=== PATIENT | female | born 1980 | race Caucasian/White ===

== ENCOUNTER 2017-01-27 13:47 | Observation (INO) | payer MEDICAID, OTHER ==
[2017-01-27] VITALS (11 sets, daily range): BP systolic 115–145; BP diastolic 43–102; PULSE 96–135; RESP 16–20; TEMP 98.1–99.1; O2SAT 93–99
[~2017-01-27] VITALS: Ht 162.6 cm; Wt 89.9 kg
[2017-01-27] MEDS ORDERED: SODIUM CHLOR 0.9% 1000 ML INJ 1,000 ML IV ONE ×2 (14:30→15:30)
[2017-01-27] MEDS ORDERED: SODIUM CHLORIDE 0.9% FLUSH 10 ML FLUSH IVF PRN (14:30)
[2017-01-27] MEDS ORDERED: ASPIRIN 81 MG CHEW TAB PO ONE (14:30)
--- NOTE | 2017-01-27 14:42 | RADHPO ---
EXAM DATE/TIME: 01/27/2017 14:31 [facility] COMPARISON: No previous studies available for comparison. INDICATIONS : Patient states chest tightness for 2 days. MEDICAL HISTORY : Smoker SURGICAL HISTORY : None. ENCOUNTER: Initial ACUITY: 2 days PAIN SCORE: 2/10 LOCATION: Bilateral chest FINDINGS: A single view of the chest demonstrates the lungs to be symmetrically aerated without evidence of mas s, infiltrate or effusion. The cardiomediastinal contours are unremarkable. Osseous structures are intact. CONCLUSION: Normal examination. Samuel Samaniego Jr., MD on January 27, 2017 at 14:41 Board Certified Radiologist. This report was verified electronically.
[2017-01-27 14:50] LABS: AUTOMATED NEUTROPHIL # 7.9 TH/MM3 (1.8-7.7); BASOPHIL # 0.2 TH/MM3 (0-0.2); BASOPHIL % 2.3 % (0.0-2.0); EOSINOPHIL # 0.1 TH/MM3 (0-0.4); EOSINOPHIL % 1.2 % (0.0-4.0); HEMATOCRIT 40.6 % (35.0-46.0); HEMO FLAGS DIFF FINAL; LYMPH % 19.6 % (9.0-44.0); LYMPHOCYTE # 2.1 TH/MM3 (1.0-4.8); MEAN CELL VOLUME 83.3 FL (80.0-100.0); MEAN CORPUSCULAR HEMOGLOBIN 27.9 PG (27.0-34.0); MEAN CORPUSCULAR HGB CONC 33.5 % (32.0-36.0); MONO % 5.9 % (0.0-8.0); PLATELET COUNT 356 TH/MM3 (150-450); RED BLOOD COUNT 4.88 MIL/MM3 (4.00-5.30); RED CELL DISTRIBUTION WIDTH 11.7 % (11.6-17.2); WHITE BLOOD COUNT 10.9 TH/MM3 (4.0-11.0)
[2017-01-27 14:57] LABS: CHLORIDE 103 MEQ/L (98-107); POTASSIUM 3.9 MEQ/L (3.5-5.1); SODIUM (NA) 139 MEQ/L (136-145)
[2017-01-27 15:01] LABS: ANION GAP 11 MEQ/L (5-15); BICARBONATE 24.6 MEQ/L (21.0-32.0)
[2017-01-27 15:03] LABS: APTT (PATIENT) 26.5 SEC (24.3-30.1); PROTHROMBIN TIME - PATIENT 10.5 SEC (9.8-11.6)
--- NOTE | 2017-01-27 15:10 | PD ---
HPI Chief Complaint: Chest Pain Time Seen by Provider: 14:19 Travel History International Travel<30 days: No Contact w/Intl Traveler<30days: No Traveled to known affect area: No History of Present Illness HPI Patient is a 36-year-old female who presents to emergency room with complaints of chest pain. Patient reports that for over 3 years, has been having increased chest pain and throat pain. Patient reports that sometimes she has trouble swallowing followed by a pain to her chest. Patient reports that symptoms were intermittent for the past 3 years, reports that she has noticed that the symptoms having more symptoms over the past few weeks. Reports that she had some chest pain last night which she describes as a sharp stabbing sensation to her chest, reports that the pain resolved by the time she woke up this morning. Patient reports that she was concerned as she is having some throat pain and trouble swallowing today. Patient this time denies any chest pain or shortness of breath. Reports that she is having some palpitations. Patient is currently not taking any control pills at this time. Denies any recent travels. Patient concerned as she does have a strong family history of "heart conditions." Reports that her mother passed from CHF and her grandfather past of an [place] at 48 years old. Reports that she has not seen a physician for a very long time so she does not think she has any medical problems. PFSH Past Medical History Hx Anticoagulant Therapy: No Diabetes: No Diminished Hearing: No ?: Unknown LMP: 2 WEEKS Social History Alcohol Use: Yes (RARELY) Tobacco Use: Yes (2 PACKS/WEEK) Substance Use: No Allergies-Medications (Allergen,Severity, Reaction): Coded Allergies: Codeine (Verified Allergy, Severe, 01/27/17) Lortab (Verified Adverse Reaction, Intermediate, nausea/CRAMPS, 01/27/17) Reported Meds & Prescriptions Reported Meds & Active Scripts Active No Active Prescriptions or Reported Medications Review of Systems General / Constitutional: No: Fever Eyes: No: Visual changes HENT: Positive: Sore Throat, No: Headaches Cardiovascular: Positive: Chest Pain or Discomfort, Palpitations, Tachycardia, No: Irregular Rhythm Respiratory: No: Shortness of Breath Gastrointestinal: No: Abdominal Pain Genitourinary: No: Dysuria Musculoskeletal: No: Pain Skin: No Rash Neurologic: No: Weakness Psychiatric: No: Depression Endocrine: No: Polydipsia Hematologic/Lymphatic: No: Easy Bruising Physical Exam Narrative GENERAL: NAD, Nontoxic SKIN: Warm and dry. HEAD: Atraumatic. Normocephalic. EYES: Pupils equal and round. No injection or drainage. ENT: No nasal bleeding or discharge. Mucous membranes pink and moist. NECK: Trachea midline. No JVD. CARDIOVASCULAR: Regular rate and rhythm. No murmur appreciated. RESPIRATORY: No accessory muscle use. Clear to auscultation. Breath sounds equal bilaterally. GASTROINTESTINAL: Abdomen soft, non-tender, nondistended. Hepatic and splenic margins not palpable. MUSCULOSKELETAL: No obvious deformities. No clubbing. No cyanosis. No edema. NEUROLOGICAL: Awake and alert. No obvious cranial nerve deficits. Motor grossly within normal limits. Normal speech. PSYCHIATRIC: Appropriate mood and affect; insight and judgment normal. Data Data Last Documented VS Vital Signs Date Time Temp Pulse Resp B/P Pulse Ox O2 Delivery O2 Flow Rate FiO2 01/27/17 17:37 96 20 139/93 95 01/27/17 13:56 99.1 Orders B-Type Natriuretic Peptide (01/27/17 14:29) Ckmb (Isoenzyme) Profile (01/27/17 14:29) Complete Blood Count With Diff (01/27/17 14:29) Comprehensive Metabolic Panel (01/27/17 14:29) D-Dimer (01/27/17 14:29) Magnesium (Mg) (01/27/17 14:29) Prothrombin Time / Inr (Pt) (01/27/17 14:29) Act Partial Throm Time (Ptt) (01/27/17 14:29) Troponin I (01/27/17 14:29) Lipase (01/27/17 14:29) Chest, Single Ap (01/27/17 14:29) Ecg Monitoring (01/27/17 14:29) Iv Access Insert/Monitor (01/27/17 14:29) Oximetry (01/27/17 14:29) Aspirin Chew (Aspirin Chew) (01/27/17 14:30) Sodium Chloride 0.9% Flush (Ns Flush) (01/27/17 14:30) Sodium Chlor 0.9% 1000 Ml Inj (Ns 1000 M (01/27/17 14:30) Electrocardiogram (01/27/17 14:00) Group A Rapid Strep Screen (01/27/17 15:21) Ct Pulmonary Angiogram (01/27/17 15:22) Sodium Chlor 0.9% 1000 Ml Inj (Ns 1000 M (01/27/17 15:30) Ct Soft Tiss Neck W/O Iv Cont (01/27/17 ) Thyroid Stimulating Hormone (01/27/17 14:42) Strep Culture (Group A) (01/27/17 15:20) Ed Urine Pregnancytest Poc (01/27/17 16:14) Admit Order (Ed Use Only) (01/27/17 18:18) Labs Laboratory Tests Test 01/27/17 14:42 White Blood Count 10.9 TH/MM3 Red Blood Count 4.88 MIL/MM3 Hemoglobin 13.6 GM/DL Hematocrit 40.6 % Mean Corpuscular Volume 83.3 FL Mean Corpuscular Hemoglobin 27.9 PG Mean Corpuscular Hemoglobin 33.5 % Concent Red Cell Distribution Width 11.7 % Platelet Count 356 TH/MM3 Mean Platelet Volume 8.2 FL Neutrophils (%) (Auto) 71.0 % Lymphocytes (%) (Auto) 19.6 % Monocytes (%) (Auto) 5.9 % Eosinophils (%) (Auto) 1.2 % Basophils (%) (Auto) 2.3 % Neutrophils # (Auto) 7.9 TH/MM3 Lymphocytes # (Auto) 2.1 TH/MM3 Monocytes # (Auto) 0.6 TH/MM3 Eosinophils # (Auto) 0.1 TH/MM3 Basophils # (Auto) 0.2 TH/MM3 CBC Comment DIFF FINAL Differential Comment Prothrombin Time 10.5 SEC Prothromb Time International 1.0 RATIO Ratio Activated Partial 26.5 SEC Thromboplast Time D-Dimer Quantitative (PE/DVT) 0.50 MG/L FEU Sodium Level 139 MEQ/L Potassium Level 3.9 MEQ/L Chloride Level 103 MEQ/L Carbon Dioxide Level 24.6 MEQ/L Anion Gap 11 MEQ/L Blood Urea Nitrogen 17 MG/DL Creatinine 1.30 MG/DL Estimat Glomerular Filtration 46 ML/MIN Rate Random Glucose 424 MG/DL Calcium Level 8.7 MG/DL Magnesium Level 1.8 MG/DL Total Bilirubin 0.3 MG/DL Aspartate Amino Transf 10 U/L (AST/SGOT) Alanine Aminotransferase 32 U/L (ALT/SGPT) Alkaline Phosphatase 139 U/L Total Creatine Kinase 48 U/L Troponin I LESS THAN 0.02 NG/ML B-Type Natriuretic Peptide 11 PG/ML Total Protein 7.2 GM/DL Albumin 2.9 GM/DL Lipase 215 U/L Thyroid Stimulating Hormone 1.610 uIU/ML 3rd Gen [facility] Medical Decision Making Medical Screen Exam Complete: Yes Emergency Medical Condition: Yes Interpretation(s) EKG at 1400: Sinus tach at 132bpm, qt/qtc: 286/412, no acute st or t wave changes Vital Signs Date Time Temp Pulse Resp B/P Pulse Ox O2 Delivery O2 Flow Rate FiO2 01/27/17 15:07 127 20 133/95 94 01/27/17 15:06 94 01/27/17 13:56 99.1 135 16 129/99 99 Differential Diagnosis Arrhythmia, ACS, strep pharyngitis, PE, electrolyte abnormality Narrative Course Patient is a 36-year-old female who presents to emergency room with multiple complaints. Reports that for over 3 years, she has had sore throat as well as chest pain. Patient reports that she has a sensation that something is stuck in her throat, reports that when she has these symptoms, they last for about a day and resolve on its own. Reports that she is able to eat and drink like her normal self, she has not lost any weight due to this. Reports that she "i feel like something is stuck in my throat." CT of the neck ordered. Patient also with chest pain. EKG with sinus tachycardia upon arrival to the emergency room. Labs as well as cardiac enzymes ordered. D-dimer 0.50 which is top normal. Patient continues to be tachycardic, CTA of the chest was ordered to evaluate for possible PE. Blood sugar is 424. Patient is hyperglycemic with no history of diabetes in the past, patient with most likely with new onset diabetes Diagnosis Primary Impression: Chest pain Scripts No Active Prescriptions or Reported Meds Noelle Sequeira DO Jan 27, 2017 15:10
[2017-01-27 15:20] LABS: ALKALINE PHOSPHATASE 139 U/L (45-117); ALT (GPT) 32 U/L (10-53); AST (GOT) 10 U/L (15-37); BLOOD UREA NITROGEN 17 MG/DL (7-18); CREATINE KINASE 48 U/L (26-192); GLOMERULAR FILTRATION RATE 46 ML/MIN (>89); MAGNESIUM 1.8 MG/DL (1.5-2.5); TOTAL BILIRUBIN ADULT 0.3 MG/DL (0.2-1.0)
[2017-01-27] MEDS ORDERED: IOHEXOL 350 MG/ML 10 ML VIAL (for RAD DIAG) IV ONE (17:20)
--- NOTE | 2017-01-27 17:42 | RADHPO ---
EXAM DATE/TIME: 01/27/2017 17:13 [facility] COMPARISON: No previous studies available for comparison. INDICATIONS : Intermittent chest pain for three years. Evaluate for embolism. IV CONTRAST: 75 cc Omnipaque 350 (iohexol) IV RADIATION DOSE: 21.42 CTDIvol (mGy) MEDICAL HISTORY : None SURGICAL HISTORY : None. ENCOUNTER: Initial ACUITY: >1 yr PAIN SCALE: 2/10 LOCATION: Bilateral chest TECHNIQUE: Volumetric scanning of the chest was performed using a pulmonary embolism protocol MIP images were re constructed. Using automated exposure control and adjustment of the mA and/or kV according to patien t size, radiation dose was kept as low as reasonably achievable to obtain optimal diagnostic quality images. FINDINGS: PULMONARY ARTERIES: No filling defects are seen in the pulmonary arteries through the segmental level. LUNGS: Minimal subpleural atelectatic changes in the right base. Lungs are otherwise clear. PLEURAE: There is no pleural thickening or pleural effusion. MEDIASTINUM: There is good visualization of the great vessels of the middle mediastinum. No evidence of mediastin al or hilar adenopathy/mass. MUSCULOSKELETAL: Within normal limits for patient age. MISCELLANEOUS: The visualized upper abdominal organs demonstrate no acute abnormality. CONCLUSION: 1. Minimal atelectatic changes particularly in the subpleural distribution of the right base. 2. Otherwise negative. No acute infiltrate or pulmonary embolus to explain current clinical symptoms. Freddy Orellana MD on January 27, 2017 at 17:38 Board Certified Radiologist. This report was verified electronically.
--- NOTE | 2017-01-27 17:45 | RADHPO ---
EXAM DATE/TIME: 01/27/2017 17:07 [facility] COMPARISON: No previous studies available for comparison. INDICATIONS : Intermittent throat pain for three years. Evaluate for foreign body. RADIATION DOSE: 14.94 CTDIvol (mGy) MEDICAL HISTORY : None SURGICAL HISTORY : None. ENCOUNTER: Initial ACUITY: >1 yr PAIN SCORE: 2/10 LOCATION: Bilateral neck TECHNIQUE: Volumetric scanning of the neck was performed. Using automated exposure control and adjustment of th e mA and/or kV according to patient size, radiation dose was kept as low as reasonably achievable to obtain optimal diagnostic quality images. FINDINGS: NASOPHARYNX: The nasopharyngeal airway has a normal configuration. No mucosal thickening or mass is seen. OROPHARYNX: The intrinsic muscles of the tongue are symmetric. The tonsillar pillars are intact. The prevertebr al soft tissues are not thickened. LARYNX: The supraglottic, glottic, and infraglottic structures are intact. PARAPHARYNGEAL: The parapharyngeal space is intact. SALIVARY GLANDS: The parotid and submandibular glands are intact. LYMPH NODES: No enlarged or necrotic-appearing nodes. THYROID: Homogeneous enhancement without evidence of nodule. BONES: Unremarkable. CONCLUSION: Negative exam. No mass lesion, adenopathy or foreign body. Freddy Orellana MD on January 27, 2017 at 17:41 Board Certified Radiologist. This report was verified electronically.
--- NOTE | 2017-01-27 18:18 | PD ---
Physical Exam Narrative Received sign out from previous team to follow up CTs and likely admit for chest pain and new onset diabetes. 36yo F with no PMH because she does not go to the doctor here with c/o intermittent chest pain. States this episode started this morning and it is pressure like, midsternal and seems to radiate up throat. Denies any sob, nausea, diaphoresis, weakness or numbness. States she has had chest pain before and was told to go for a stress test but never did. Pt has family history that is significant for maternal grandfather of [place] at 48yo. Pt is also a cig smoker and overweight. Although pt's chest pain is atypical, felt that she has not had stress test or further testing. Labs reviewed, no leukocytosis. Glucose 424. No increased anion gap. Creatinine 1.30. Pt given NS IVF x2. Pt has never been diagnosed with diabetes. Troponin negative. BNP 11. TSH normal. CT angio showed no PE. CXR negative. CT neck negative. Negative group A strep. Discussed with Dr. Hudson and accepted for chest pain and new onset diabetes. Discussed with Dr. Hudson and accepted to his service. Data Data Last Documented VS Vital Signs Date Time Temp Pulse Resp B/P Pulse Ox O2 Delivery O2 Flow Rate FiO2 01/27/17 17:37 96 20 139/93 95 01/27/17 13:56 99.1 Orders B-Type Natriuretic Peptide (01/27/17 14:29) Ckmb (Isoenzyme) Profile (01/27/17 14:29) Complete Blood Count With Diff (01/27/17 14:29) Comprehensive Metabolic Panel (01/27/17 14:29) D-Dimer (01/27/17 14:29) Magnesium (Mg) (01/27/17 14:29) Prothrombin Time / Inr (Pt) (01/27/17 14:29) Act Partial Throm Time (Ptt) (01/27/17 14:29) Troponin I (01/27/17 14:29) Lipase (01/27/17 14:29) Chest, Single Ap (01/27/17 14:29) Ecg Monitoring (01/27/17 14:29) Iv Access Insert/Monitor (01/27/17 14:29) Oximetry (01/27/17 14:29) Aspirin Chew (Aspirin Chew) (01/27/17 14:30) Sodium Chloride 0.9% Flush (Ns Flush) (01/27/17 14:30) Sodium Chlor 0.9% 1000 Ml Inj (Ns 1000 M (01/27/17 14:30) Electrocardiogram (01/27/17 14:00) Group A Rapid Strep Screen (01/27/17 15:21) Ct Pulmonary Angiogram (01/27/17 15:22) Sodium Chlor 0.9% 1000 Ml Inj (Ns 1000 M (01/27/17 15:30) Ct Soft Tiss Neck W/O Iv Cont (01/27/17 ) Thyroid Stimulating Hormone (01/27/17 14:42) Strep Culture (Group A) (01/27/17 15:20) Ed Urine Pregnancytest Poc (01/27/17 16:14) Labs Laboratory Tests Test 01/27/17 14:42 White Blood Count 10.9 TH/MM3 Red Blood Count 4.88 MIL/MM3 Hemoglobin 13.6 GM/DL Hematocrit 40.6 % Mean Corpuscular Volume 83.3 FL Mean Corpuscular Hemoglobin 27.9 PG Mean Corpuscular Hemoglobin 33.5 % Concent Red Cell Distribution Width 11.7 % Platelet Count 356 TH/MM3 Mean Platelet Volume 8.2 FL Neutrophils (%) (Auto) 71.0 % Lymphocytes (%) (Auto) 19.6 % Monocytes (%) (Auto) 5.9 % Eosinophils (%) (Auto) 1.2 % Basophils (%) (Auto) 2.3 % Neutrophils # (Auto) 7.9 TH/MM3 Lymphocytes # (Auto) 2.1 TH/MM3 Monocytes # (Auto) 0.6 TH/MM3 Eosinophils # (Auto) 0.1 TH/MM3 Basophils # (Auto) 0.2 TH/MM3 CBC Comment DIFF FINAL Differential Comment Prothrombin Time 10.5 SEC Prothromb Time International 1.0 RATIO Ratio Activated Partial 26.5 SEC Thromboplast Time D-Dimer Quantitative (PE/DVT) 0.50 MG/L FEU Sodium Level 139 MEQ/L Potassium Level 3.9 MEQ/L Chloride Level 103 MEQ/L Carbon Dioxide Level 24.6 MEQ/L Anion Gap 11 MEQ/L Blood Urea Nitrogen 17 MG/DL Creatinine 1.30 MG/DL Estimat Glomerular Filtration 46 ML/MIN Rate Random Glucose 424 MG/DL Calcium Level 8.7 MG/DL Magnesium Level 1.8 MG/DL Total Bilirubin 0.3 MG/DL Aspartate Amino Transf 10 U/L (AST/SGOT) Alanine Aminotransferase 32 U/L (ALT/SGPT) Alkaline Phosphatase 139 U/L Total Creatine Kinase 48 U/L Troponin I LESS THAN 0.02 NG/ML B-Type Natriuretic Peptide 11 PG/ML Total Protein 7.2 GM/DL Albumin 2.9 GM/DL Lipase 215 U/L Thyroid Stimulating Hormone 1.610 uIU/ML 3rd Gen MDM Supervised Visit with ARNOL: No Diagnosis Primary Impression: Chest pain Qualified Code: R07.9 - Chest pain, unspecified type Additional Impression: Diabetes mellitus, new onset Admitting Information Admitting Physician Requests: Observation Scripts No Active Prescriptions or Reported Meds Cherelle Contreras DO Jan 27, 2017 18:18
[2017-01-27] MEDS ORDERED: SODIUM CHLORIDE 0.9% FLUSH 10 ML FLUSH IV FLUSH PRN (18:30)
[2017-01-27] MEDS ORDERED: DEXTROSE 50% IN WATER 50 ML VIAL(D50) IV PUSH PRN (18:30)
[2017-01-27] MEDS ORDERED: ACETAMINOPHEN 325 MG TAB PO PRN (18:30)
[2017-01-27] MEDS ORDERED: NALOXONE HCL 0.4 MG/ML AMP IV PRN (18:30)
[2017-01-27] MEDS ORDERED: GLUCAGON 1 MG/ML VIAL OTHER PRN (18:30)
[2017-01-27] MEDS: INSULIN ASPART SUPPLEMENTAL SCALE SQ SCH (20:23)
[2017-01-27] MEDS: HEPARIN SODIUM - SQ 10,000 UNITS/ML VIAL SQ SCH (20:23)
[2017-01-27] MEDS: SODIUM CHLORIDE 0.9% FLUSH 10 ML FLUSH IV FLUSH SCH (21:00)
[2017-01-27 21:25] LABS: CREATINE KINASE 47 U/L (26-192)
--- NOTE | 2017-01-27 22:20 | EKG ---
Date Performed: 01/27/2017 Time Performed: 19:59:50 PTAGE: 36 years EKG: Sinus rhythm Normal ECG PREVIOUS TRACING : 01/27/2017 14.00 Compared to the previous tracing rate slower DOCTOR: Bennett Banda Interpretating Date/Time 01/27/2017 22:18:21
--- NOTE | 2017-01-27 22:33 | EKG ---
Date Performed: 01/27/2017 Time Performed: 14:00:42 PTAGE: 36 years EKG: Sinus tachycardia Poor R wave progression - probable normal variant Borderline ECG NO PREVIOUS TRACING DOCTOR: Bennett Banda Interpretating Date/Time 01/27/2017 22:31:02
[2017-01-28] VITALS (7 sets, daily range): BP systolic 117–135; BP diastolic 82–101; PULSE 89–106; RESP 18–20; TEMP 97.4–98.7; O2SAT 95–100
[2017-01-28 03:05] LABS: CREATINE KINASE 100 U/L (26-192)
[2017-01-28] MEDS: HEPARIN SODIUM - SQ 10,000 UNITS/ML VIAL SQ SCH ×3 (04:04→21:35)
[2017-01-28] MEDS: INSULIN ASPART SUPPLEMENTAL SCALE SQ SCH ×4 (06:24→21:38)
[2017-01-28 08:54] LABS: BICARBONATE 28.3 MEQ/L (21.0-32.0)
[2017-01-28] MEDS: SODIUM CHLORIDE 0.9% FLUSH 10 ML FLUSH IV FLUSH SCH ×2 (09:00→21:35)
--- NOTE | 2017-01-28 09:40 | HHI.HP ---
[facility] Service [facility] Primary Care Physician No Primary Care Physician Admission Diagnosis Chest pain, new onset diabetes Diagnoses: (1) Chest pain Diagnosis: Principal (2) Diabetes mellitus, new onset Diagnosis: Principal Chief Complaint: Chest pain Travel History International Travel<30 Days: No Contact w/Intl Traveler <30 Da: No Traveled to Known Affected Are: No History of Present Illness 36-year-old female with no chronic medical illnesses who presented to hospital because of a two-year history of chest discomfort. Patient states that she is experiencing intermittent chest discomfort for the last 2 years. She states that the pain starts in the middle part of her chest and radiates up into her throat, she can't describe the pain that well, however she indicates that he usually ends with a burning sensation in the base of her throat. She states the pain lasts for a couple seconds at a time and resolves on its own. Patient does indicate that she gets a sensation that her heart is going to pound out of her chest. Patient denies any nausea, vomiting, diaphoresis, lightheadedness, dizziness, shortness of breath, dyspnea. Patient indicates that she does get heartburn frequently and she has eliminated certain foods out of her diet in order to avoid heartburn. She does not indicate that any certain activity causes the pain get worse or get better. The pain can happen at during rest or during exertion. Patient is concerned because she has significant family history with mother dying in her sleep with history of congestive heart failure, valve replacement. Grandfather also had heart attack at age 46. Review of Systems Constitutional: DENIES: Diaphoretic episodes, Fatigue, Fever, Weight gain, Weight loss, Chills, Dizziness, Change in appetite, Night Sweats Endocrine: DENIES: Abnorml menstrual pattern, Heat/cold intolerance, Polydipsia , Polyuria, Polyphagia Eyes: DENIES: Blurred vision, Diplopia, Eye inflammation, Eye pain, Vision loss , Photosensitivity, Double Vision Ears, nose, mouth, throat: DENIES: Tinnitus, Hearing loss, Vertigo, Nasal discharge, Oral lesions, Throat pain, Hoarseness, Ear Pain, Running Nose, Epistaxis, Sinus Pain, Toothache, Odynophagia Respiratory: DENIES: Apneas, Cough, Snoring, Wheezing, Hemoptysis, Sputum production, Shortness of breath Cardiovascular: COMPLAINS OF: Chest pain, DENIES: Palpitations, Syncope, Dyspnea on Exertion, PND, Lower Extremity Edema, Orthopnea, Claudication Gastrointestinal: DENIES: Abdominal pain, Black stools, Bloody stools, Constipation, Diarrhea, Nausea, Vomiting, Difficulty Swallowing, Anorexia Neurologic: DENIES: Abnormal gait, Headache, Localized weakness, Paresthesias, Seizures, Speech Problems, Tremor, Poor Balance Psychiatric: DENIES: Anxiety, Confusion, Mood changes, Depression Past Family Social History Past Medical History No chronic medical illnesses Past Surgical History 13 years ago Reported Medications No chronic medications Allergies: Coded Allergies: Codeine (Verified Allergy, Severe, 01/27/17) Lortab (Verified Adverse Reaction, Intermediate, nausea/CRAMPS, 01/27/17) Family History Reviewed and significant for heart disease with mother passing away in her sleep. Has history of congestive heart failure, valve replacement. Grandfather with early onset heart disease at age 46 Social History Patient smokes 2 pack a cigarettes a week. She is been smoking since she was a teenager. She denies any alcohol or illicit drugs Physical Exam Vital Signs Vital Signs Date Time Temp Pulse Resp B/P Pulse Ox O2 Delivery O2 Flow Rate FiO2 01/28/17 08:00 98.6 95 20 126/83 100 01/28/17 04:00 97.4 91 20 117/84 98 01/28/17 00:00 98.7 95 18 125/90 98 01/27/17 22:00 99 01/27/17 21:55 98.1 100 18 145/102 98 01/27/17 21:38 18 96 01/27/17 19:49 103 18 144/43 96 Room Air 01/27/17 19:49 103 18 96 Room Air 01/27/17 19:06 100 18 142/92 98 Room Air 01/27/17 18:34 104 20 140/92 93 01/27/17 17:37 96 20 139/93 95 01/27/17 16:50 103 20 121/73 95 01/27/17 15:54 102 20 115/54 94 01/27/17 15:07 127 20 133/95 94 01/27/17 15:06 94 01/27/17 13:56 99.1 135 16 129/99 99 Physical Exam GENERAL: Well-developed, well-nourished, in no acute distress. alert and orientated HEENT: Head is normocephalic without any lesions or masses noted. Facial features are symmetric. Eyes: Pupils equal round reactive to light. Extraocular muscles are intact. Conjunctivae were clear. Oropharyngeal: Pharynx without any erythema edema. Tongue is midline without deviation. Buccal mucosa is moist without any masses or lesions NECK: Supple without any masses. Trachea midline no deviation. No JVD, no bruits are appreciated CARDIAC: Regular rhythm, regular rate. S1/S2 are heard. No murmurs gallops or rubs. LUNGS: Clear to auscultation bilaterally. No wheeze, rhonchi or rales. No use of accessory muscles on inspiration or expiration. ABDOMEN: Soft, nontender. Nondistended. Bowel sounds heard in all 4 quadrants. No organomegaly or masses. Negative rebound, negative guarding EXTREMITIES: No edema, pulses are equal bilaterally. No cyanosis or clubbing NEUROLOGY: Mood and affect appear appropriate. Cranial nerves II through XII grossly intact. Muscle strength 5/5 in upper and lower extremities bilaterally. Deep tendon reflexes are 2+ in upper and lower extremities bilaterally. Laboratory Laboratory Tests Test 01/27/17 01/27/17 01/28/17 01/28/17 14:42 20:35 02:10 08:25 White Blood Count 10.9 Red Blood Count 4.88 Hemoglobin 13.6 Hematocrit 40.6 Mean Corpuscular Volume 83.3 Mean Corpuscular Hemoglobin 27.9 Mean Corpuscular Hemoglobin 33.5 Concent Red Cell Distribution Width 11.7 Platelet Count 356 Mean Platelet Volume 8.2 Neutrophils (%) (Auto) 71.0 Lymphocytes (%) (Auto) 19.6 Monocytes (%) (Auto) 5.9 Eosinophils (%) (Auto) 1.2 Basophils (%) (Auto) 2.3 Neutrophils # (Auto) 7.9 Lymphocytes # (Auto) 2.1 Monocytes # (Auto) 0.6 Eosinophils # (Auto) 0.1 Basophils # (Auto) 0.2 CBC Comment DIFF FINAL Differential Comment Prothrombin Time 10.5 Prothromb Time International 1.0 Ratio Activated Partial 26.5 Thromboplast Time D-Dimer Quantitative (PE/DVT) 0.50 Sodium Level 139 141 Potassium Level 3.9 4.0 Chloride Level 103 106 Carbon Dioxide Level 24.6 28.3 Anion Gap 11 7 Blood Urea Nitrogen 17 Creatinine 1.30 Estimat Glomerular Filtration 46 Rate Random Glucose 424 Calcium Level 8.7 8.2 Magnesium Level 1.8 Total Bilirubin 0.3 Aspartate Amino Transf 10 (AST/SGOT) Alanine Aminotransferase 32 (ALT/SGPT) Alkaline Phosphatase 139 Total Creatine Kinase 48 47 100 Troponin I LESS THAN 0.02 LESS THAN 0.02 LESS THAN 0.02 B-Type Natriuretic Peptide 11 Total Protein 7.2 Albumin 2.9 Lipase 215 Thyroid Stimulating Hormone 1.610 3rd Gen Date/Time Procedure Status Source Growth 01/27/17 15:20 Group A Streptococcus Screen (TEE) - Final Complete Throat 01/27/17 15:20 Group A Streptococcus Screen Received Throat Pending Result Diagram: 01/27/17 1442 01/28/[address] Angiography 01/27/17 1522 Signed Impressions: Service Date/Time: Friday, January 27, 2017 17:13 - CONCLUSION: 1. Minimal atelectatic changes particularly in the subpleural distribution of the right base. 2. Otherwise negative. No acute infiltrate or pulmonary embolus to explain current clinical symptoms. Freddy Orellana MD Chest X-Ray 01/27/17 1429 Signed Impressions: Service Date/Time: Friday, January 27, 2017 14:31 - CONCLUSION: Normal examination. Samuel Samaniego Jr., MD Neck CT 01/27/17 0000 Signed Impressions: Service Date/Time: Friday, January 27, 2017 17:07 - CONCLUSION: Negative exam. No mass lesion, adenopathy or foreign body. Freddy Orellana MD Assessment and Plan Assessment and Plan Chest pain: Atypical Patient with increased risk factors to include diabetes, tobacco use, family history of early-onset heart disease Patient has been ruled out for any acute coronary event with serial cardiac enzymes are negative Serial EKGs were reviewed and did not indicate any changes. We'll pursue nuclear stress test rule out any underlying ischemia Obtain lipid panel New onset diabetes, patient does have family history of diabetes Accu-Cheks sliding scale insulin Consult medical educator, dietitian for counseling Awaiting glycohemoglobin Azotemia, unknown whether chronic or acute Continue IV fluids Continue monitor renal function Chronic tobacco use Patient counseled on cessation DVT prevention Sequential compression devices Written by Shant Nieves, acting as scribe for Dr. Bills on 01/28/17 at 09:40. All or portions of this note were transcribed by scribe Shant Nieves. I, Dr. Shant Bills personally performed the history, physical exam, and medical decision making; and confirmed the accuracy of the information in the transcribed note. Authenticated by Dr. Shant Bills on 01/28/17 at 09:52. Problem Qualifiers (1) Chest pain: Qualified Code: R07.9 - Chest pain, unspecified type Shant Nieves Jan 28, 2017 09:40 Shant Bills MD Jan 28, 2017 09:52
[2017-01-28] MEDS ORDERED: REGADENOSON INJ 0.4 MG/5 ML SYR IV ONE (10:24)
--- NOTE | 2017-01-28 12:01 | RADHPO ---
EXAM DATE/TIME: 01/28/2017 10:45 [facility] COMPARISON: No previous studies available for comparison. INDICATIONS : Substernal chest pain intermittently for one week. Angina. DOSE: 25.4 mCi Tc99m Myoview at stress. 8.5 mCi Tc99m Myoview at rest. 0.4 mg Lexiscan STRESS SYMPTOMS: Dyspnea, headache, lightheaded, arms and legs heavy and chest pain. EJECTION FRACTION: 61% MEDICAL HISTORY : Diabetes mellitus type 2. SURGICAL HISTORY : section. ENCOUNTER: Initial ACUITY: 1 week PAIN SCALE: 6/10 LOCATION: Substernal chest TECHNIQUE: The patient underwent pharmacologic stress with infusion of prescribed dose. Continuous ECG tracing was monitored during stress. Gated SPECT imaging was performed after stress and conventional SPECT i maging was performed at rest. The examination was performed on a SPECT/CT scanner, both attenuation and non-corrected datasets were reviewed. FINDINGS: DISTRIBUTION: The maximum perfused segment at stress is in the inferior wall. PERFUSION STUDY: The pattern of perfusion at stress shows an isolated area of approximately 20% redistribution in the mid to low lateral wall on the short axis views. This is not duplicated on the horizontal long axis v iews, however and therefore, it is artifactual. Relatively fixed diminished perfusion to the apex. GATED STUDY: There is intact wall motion and thickening without hypokinetic or dyskinetic segments. CONCLUSION: 1. No reversibility to suggest ischemia. 2. Diminished apical perfusion on rest and stress images may represent apical thinning or old apical infarct. 3. Intact wall motion throughout with an estimated ejection fraction of 61%. RISK CATEGORY: Low (<1% Annual Mortality Rate) Freddy Orellana MD on January 28, 2017 at 11:55 Board Certified Radiologist. This report was verified electronically.
[2017-01-28 13:35] LABS: HDL CHOLESTEROL 34.1 MG/DL (40.0-60.0)
[2017-01-28 15:47] LABS: HEMOGLOBIN A1a 1.1 %; HEMOGLOBIN Ao 76.4 %; HEMOGLOBIN LA1C 2.9 %; HEMOGLOBIN P3 5.2 %
--- NOTE | 2017-01-28 20:20 | EKG ---
Date Performed: 01/28/2017 Time Performed: 01:38:06 PTAGE: 36 years EKG: Sinus rhythm Normal ECG PREVIOUS TRACING : 01/27/2017 19.59 Compared to prior tracing no significant change DOCTOR: Bennett Banda Interpretating Date/Time 01/28/2017 20:19:15
[2017-01-29] VITALS: BP 129/92; PULSE 90; RESP 20; TEMP 98.3; O2SAT 98
[2017-01-29 04:00] VITALS: BP 114/82; PULSE 92; RESP 20; TEMP 98; O2SAT 93
[2017-01-29] MEDS: HEPARIN SODIUM - SQ 10,000 UNITS/ML VIAL SQ SCH ×2 (05:55→10:07)
[2017-01-29] MEDS: INSULIN ASPART SUPPLEMENTAL SCALE SQ SCH ×3 (05:58→16:00)
[2017-01-29 08:00] VITALS: BP 118/78; PULSE 98; RESP 16; TEMP 96.5; O2SAT 99
[2017-01-29] MEDS ORDERED: glipiZIDE 10 MG TAB PO ONE (09:00)
[2017-01-29] MEDS: SODIUM CHLORIDE 0.9% FLUSH 10 ML FLUSH IV FLUSH SCH (09:00)
[2017-01-29] MEDS ORDERED: metFORMIN HCL 500 MG TAB PO SCH ×2 (09:00)
[2017-01-29] MEDS ORDERED: BLOOD GLUCOSE T1 TES (12:07)
[2017-01-29] MEDS ORDERED: GLIP5TAB8 PO (12:07)
[2017-01-29] MEDS ORDERED: METF500 PO (12:07)
[2017-01-29] MEDS ORDERED: LANCETS1 MI1 (12:07)
--- NOTE | 2017-01-29 12:11 | HHI.DCPOC ---
Discharge Care Plan Diagnosis: (1) Diabetes mellitus, new onset (2) Chest pain Goals to Promote Your Health * To prevent worsening of your condition and complications * To maintain your health at the optimal level Directions to Meet Your Goals Take your medications as prescribed Follow your dietary instruction Follow activity as directed Keep your appointments as scheduled Take your immunizations and boosters as scheduled If your symptoms worsen call your PCP, if no PCP go to Urgent Care Center or Emergency Room Smoking is Dangerous to Your Health. Avoid second hand smoke Call the 24-hour hour crisis hotline for domestic abuse at Shant Nieves Jan 29, 2017 12:11
--- NOTE | 2017-01-29 12:16 | HHI.PR ---
Subjective Remarks Patient seen and examined today with Dr. Gonzales. Patient states that she is doing better. Denies any recurrent chest pain. Patient is undergoing diabetic education at this time. Dr. Gonzales and myself also counseled patient on diabetes, medication use, exercise, diet. Objective Vitals Vital Signs Date Time Temp Pulse Resp B/P Pulse Ox O2 Delivery O2 Flow Rate FiO2 01/29/17 08:00 96.5 98 16 118/78 99 01/29/17 04:00 98.0 92 20 114/82 93 01/29/17 00:00 98.3 90 20 129/92 98 01/28/17 20:04 106 01/28/17 20:00 98.6 102 20 127/101 95 01/28/17 16:00 98.2 99 20 131/82 98 I/O 01/28/17 01/28/17 01/28/17 01/29/17 01/29/17 01/29/17 07:00 15:00 23:00 07:00 15:00 23:00 Intake Total 480 ml 220 ml 60 ml Balance 480 ml 220 ml 60 ml Intake Oral 480 ml 220 ml 60 ml # Voids 2 7 4 1 # Bowel Movements 0 0 Result Diagram: 01/27/17 1442 01/28/17 0825 Objective Remarks GENERAL: Well-developed, well-nourished, in no acute distress. alert and orientated HEENT: Head is normocephalic without any lesions or masses noted. Facial features are symmetric. Eyes: Extraocular muscles are intact. Conjunctivae were clear. NECK: Supple without any masses. Trachea midline no deviation. No JVD, CARDIAC: Regular rhythm, regular rate. S1/S2 are heard. No murmurs gallops or rubs. LUNGS: Clear to auscultation bilaterally. No wheeze, rhonchi or rales. No use of accessory muscles on inspiration or expiration. ABDOMEN: Soft, nontender. Nondistended. Bowel sounds heard in all 4 quadrants. No organomegaly or masses. Negative rebound, negative guarding EXTREMITIES: No edema, pulses are equal bilaterally. No cyanosis or clubbing NEUROLOGY: Mood and affect appear appropriate. Cranial nerves II through XII grossly intact. Moving all extremities, speech is clear Urinary Catheter: No Vascular Central Line Catheter: No A/P Assessment and Plan Chest pain: Atypical Patient with increased risk factors to include diabetes, tobacco use, family history of early-onset heart disease Patient has been ruled out for any acute coronary event with serial cardiac enzymes are negative Serial EKGs were reviewed and did not indicate any changes. Nuclear stress test was performed which did not indicate any acute abnormality or reversible ischemia. Lipid panel performed which does show LDL 114. Recommending lifestyle modifications at this time. Outpatient follow-up with primary medical doctor New onset diabetes, patient does have family history of diabetes Accu-Cheks sliding scale insulin Consulted conservation educator, dietitian for counseling Hemoglobin A1c 11.0 Patient started on metformin 1000 mg twice daily, glipizide 5 mg twice daily Patient was counseled to check glucose 3 times daily before meals, keep a daily long, present to primary medical doctor on follow-up appointments Azotemia, unknown whether chronic or acute, resolved Continue IV fluids Continue monitor renal function Chronic tobacco use Patient counseled on cessation DVT prevention Sequential compression devices Written by Shant Nieves PA-C, acting as scribe for Dr. Gonzales on 01/29/17 at 11:30. The documentation accurately reflects the work and decisions performed face-to- face by Dr. Gonzales on 01/29/17 at 11:30. Discharge Planning Discharge home in stable condition Activity: Ad iftikhar. Diet: Diabetic diet Medications per medication reconciliation Follow-up primary medical doctor on appointment February 17, 2017 Shant Nieves Jan 29, 2017 12:16
[2017-02-17] MEDS ORDERED: GLIP5TAB8 PO (15:37)
[2017-02-17] MEDS ORDERED: LISI10TA3 PO (15:38)
[2017-02-17] MEDS ORDERED: METF1000 PO (15:38)
[2017-03-19] MEDS ORDERED: METF500T PO (09:27)
== END 2017-01-29 18:00 | disposition home or self-care (01) ==
LOC: PHED 13:47 → PHEDA 18:18 → PH3A 21:37
PROVIDERS: ADMIT Family Medicine; ATTEND Family Medicine
DX: R07.9 Chest pain, unspecified (principal); R13.10 Dysphagia, unspecified; R00.2 Palpitations; F17.210 Nicotine dependence, cigarettes, uncomplicated; R00.0 Tachycardia, unspecified; E66.3 Overweight; E11.65 Type 2 diabetes mellitus with hyperglycemia; R12 Heartburn; R79.89 Other specified abnormal findings of blood chemistry
CPT/HCPCS: 70490; 71010; 71275; 78452; 80048; 80053; 80061; 82550; 82948; 83036; 83690; 83735; 83880; 84443; 84484; 84703; 85025; 85379; 85610; 85730; 87081; 87880; 93005; 93017; 96360; 96361; 99285; A9502; G0378; J1644; J1815; J2785; J7030; Q9967